=== PATIENT | female | born 1970 | race Caucasian/White ===

== ENCOUNTER 2016-04-28 07:56 | Emergency (ER) | payer OTHER ==
[2016-04-28 08:17] VITALS: BP 138/93
--- NOTE | 2016-04-28 09:05 | UC ---
Respiratory Complaint HPI - HPI Summary HPI Summary: non productive cough, for past week, seen PCP on Saturday prescribed Mucinex with no relief. sx started about 6-7 days ago. no fever. no sinus pain/ pressure. Has had to use inhaler before. no asthma. never smoked. feels burning with cough. - History of Current Complaint Chief Complaint: UCGeneralIllness Stated Complaint: COUGH, CONGESTION Time Seen by Provider: 04/28/16 08:14 Hx Last Menstrual Period: 10/2014 - Allergies/Home Medications Allergies/Adverse Reactions: Allergies Allergy/AdvReac Type Severity Reaction Status Date / Time No Known Allergies Allergy Verified 04/28/16 08:05 Home Medications: Home Medications Metaxalone TAB* [Skelaxin TAB*] 800 mg PO TID 04/28/16 [History Confirmed ] PMH/Surg Hx/FS Hx/Imm Hx Previously Healthy: Yes Endocrine History Of: Denies: Thyroid Disease Cardiovascular History Of: Reports: Deep Vein Thrombosis - Surgical History Surgical History: Yes Surgery Procedure, Year, and Place: 2011, gallbladder removal 2012, 2 left leg thrombi retrieval with one successful attempt 2009 - Family History Known Family History: Positive: Hypertension Negative: Respiratory Disease - Social History Alcohol Use: None Substance Use Type: None Substance Use Comment - Amount & Last Used: percocet Smoking Status (MU): Former Smoker Type: Cigarettes Have You Smoked in the Last Year: No When Did the Patient Quit Smoking/Using Tobacco: 1996 - Immunization History Most Recent Influenza Vaccination: 2012 Review of Systems Constitutional: Fatigue Skin: Negative Eyes: Negative ENT: Nasal Discharge Respiratory: Cough Cardiovascular: Negative Gastrointestinal: Negative Genitourinary: Negative Motor: Negative Neurovascular: Negative Musculoskeletal: Negative Neurological: Negative Psychological: Negative All Other Systems Reviewed And Are Negative: Yes Physical Exam Triage Information Reviewed: Yes Appearance: Well-Appearing, No Pain Distress - appears mildly ill appearing, Well-Nourished Vital Signs: Initial Vital Signs Temp 97.6 F 04/28/16 08:00 Pulse 82 04/28/16 08:00 Resp 16 04/28/16 08:00 BP 138/93 04/28/16 08:00 Pulse Ox 99 04/28/16 08:00 Vital Signs Reviewed: Yes Eye Exam: Normal ENT: Positive: Hearing grossly normal, Nasal congestion - + PND, Nasal drainage , TMs normal. Negative: Tonsillar swelling, Tonsillar exudate Dental Exam: Normal Neck exam: Normal Neck: Positive: Supple, Nontender, No Lymphadenopathy Respiratory Exam: Normal Respiratory: Positive: Lungs clear, No respiratory distress, No accessory muscle use, Decreased breath sounds. Negative: Crackles, Rhonchi, Stridor, Wheezing Cardiovascular Exam: Normal Cardiovascular: Positive: RRR, No Murmur, Pulses Normal, Brisk Capillary Refill Abdominal Exam: Normal Abdomen Description: Positive: Nontender, Soft Musculoskeletal Exam: Normal Neurological Exam: Normal Psychological Exam: Normal Skin Exam: Normal UC Diagnostic Evaluation - Laboratory O2 Sat by Pulse Oximetry: 99 Re-Evaluation - Re-Evaluation First Eval Re-Evaluation Time: 09:30 Change: Improved - she feels much better, lungs are looser and able to cough up more. no burning or wheezing. lungs with improved breath sounds on exam. Respiratory Course/Dx - Differential Dx/Diagnosis Differential Diagnosis/HQI/PQRI: Bronchitis, Influenza, Lower Resp Infection, Sinusitis Provider Diagnoses: bronchitis Discharge - Discharge Plan Condition: Stable Disposition: HOME Prescriptions: Albuterol HFA INHALER* [Ventolin HFA Inhaler*] 2 puff INH Q4H PRN #1 mdi PRN Reason: Cough Patient Education Materials: Acute Bronchitis (ED) Referrals: Megan Mandujano MD [Primary Care Provider] - 3 Days Additional Instructions: Use the inhaler every 4-6 hrs until sx resolve. increase fluids and rest.
[2016-04-28] MEDS ORDERED: Albuterol 2.5 MG/3 ML NEB.SOL* (0.083%) INH ONE (09:06)
== END 2016-04-28 09:43 | disposition home or self-care (01) ==
LOC: UCCORT 07:56
DX: J40 Bronchitis, not specified as acute or chronic (principal); Z90.49 Acquired absence of other specified parts of digestive tract; Z87.891 Personal history of nicotine dependence
CPT/HCPCS: 99212; G0463

== ENCOUNTER 2018-08-23 10:15 | Emergency (ER) | payer BC ==
[2018-08-23 10:34] VITALS: BP 116/72
--- NOTE | 2018-08-23 10:43 | UC ---
Eye Complaint HPI - HPI Summary HPI Summary: 48-year-old female who had watery itchy eyes yesterday however she will awaken today and there is drainage was more purulent and her eyes were crusted shut. She does not wear contact lenses and she denies any visual changes. No recent cold symptoms. - History of Current Complaint Chief Complaint: UCEye Stated Complaint: B/L EYE COMPLAINT Time Seen by Provider: 08/23/18 10:42 Hx Obtained From: Patient Hx Last Menstrual Period: 10/2014 ?: No Onset/Duration: Gradual Onset Timing: Constant Severity Initially: Mild Severity Currently: Mild Pain Intensity: 0 Location of Injury: Other - No injury Aggravating Factor(s): Nothing Alleviating Factor(s): Nothing Associated Signs And Symptoms: Positive: Drainage (Purulent) - Itchy eyes - Allergies/Home Medications Allergies/Adverse Reactions: Allergies Allergy/AdvReac Type Severity Reaction Status Date / Time No Known Allergies Allergy Verified 08/23/18 10:31 Home Medications: Home Medications cloNIDine TAB* [Catapres 0.1 MG TAB*] 0.1 mg PO QID 08/23/18 [History Confirmed 08/23/18] PMH/Surg Hx/FS Hx/Imm Hx Previously Healthy: Yes Cardiovascular History: Hypertension Psychological History: Anxiety - Surgical History Surgical History: Yes Surgery Procedure, Year, and Place: 2011;. gallbladder removal 2012; . 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[employer] ; IVC FILTER - [employer] VCFS CONDITIONAL 6 - 3T OR LESS 720 MSP DANIEL 2.0 W/KG NORMAL MODE ONLY); - Family History Known Family History: Positive: Hypertension Negative: Respiratory Disease - Social History Alcohol Use: None Substance Use Type: None Substance Use Comment - Amount & Last Used: percocet Smoking Status (MU): Former Smoker Type: Cigarettes Have You Smoked in the Last Year: No When Did the Patient Quit Smoking/Using Tobacco: 1996 - Immunization History Most Recent Influenza Vaccination: 2012 Review of Systems All Other Systems Reviewed And Are Negative: Yes Eyes: Positive: Drainage - Clear watery drainage yesterday but today it was more purulent with her eyes crusted shut., Eye Redness - Both eyes were itchy yesterday today. She denies any eye pain. Is Patient Immunocompromised?: No Physical Exam Triage Information Reviewed: Yes Appearance: Well-Appearing, No Pain Distress, Well-Nourished Vital Signs: Initial Vital Signs Temp 97.7 F 08/23/18 10:31 Pulse 66 08/23/18 10:31 Resp 16 08/23/18 10:31 BP 116/72 08/23/18 10:31 Pulse Ox 98 08/23/18 10:31 Vital Signs Reviewed: Yes Eyes: Positive: Conjunctiva Inflamed, Discharge - Mildly watery/purulent drainage from both eyes. Sclera is injected. ENT: Positive: Hearing grossly normal, Pharynx normal, TMs normal, Uvula midline Neck: Positive: Supple, Nontender, No Lymphadenopathy Respiratory: Positive: Lungs clear, Normal breath sounds, No respiratory distress, No accessory muscle use Cardiovascular: Positive: RRR, No Murmur, Pulses Normal, Brisk Capillary Refill Musculoskeletal Exam: Normal Neurological Exam: Normal Psychological Exam: Normal Skin Exam: Normal Eye Complaint Course/Dx - Course Course Of Treatment: The patient's symptoms may be allergy related although she does not have a history of allergies but because the drainage is a little more purulent today I am going to treat for a bacterial conjunctivitis. She is going to purchase Claritin 10 mg and take that daily and see if that helps some of the symptoms. She is to follow-up with the electrical engineer mep if no improvement in 2 or 3 days. - Differential Dx/Diagnosis Provider Diagnosis: Conjunctivitis Discharge - Sign-Out/Discharge Documenting (check all that apply): Patient Departure All imaging exams completed and their final reports reviewed: No Studies - Discharge Plan Condition: Fair Disposition: HOME Prescriptions: Tobramycin 0.3% OPHTH.SAL* 1 drop BOTH EYES Q4H 7 Days #1 btl Patient Education Materials: Conjunctivitis (ED) Referrals: Kieran Disla MD [Primary Care Provider] - Additional Instructions: Good handwashing, purchase Claritin 10 mg to take one a day over the next 7-10 days. Follow-up with the electrical engineer mep if no improvement in 2-3 days. Avoid rubbing her eyes. - Billing Disposition and Condition Condition: FAIR Disposition: Home
== END 2018-08-23 10:51 | disposition home or self-care (01) ==
LOC: UCCORT 10:15
DX: H10.9 Unspecified conjunctivitis (principal); I10 Essential (primary) hypertension; F41.9 Anxiety disorder, unspecified; Z87.891 Personal history of nicotine dependence
CPT/HCPCS: 99212; G0463

== ENCOUNTER 2018-08-26 16:49 | Emergency (ER) | payer BC ==
--- OUTSIDE RECORDS SUMMARY | 2018-08-26 17:24 | XMS REPORT | Continuity of Care Document ---
:1970 External Reference #:[id number] Author Name Leslie Obrien, PNP-BC, NURSE TRANSITION, Ibclc Address [address] [facility] [address] [place] [address] Care Team Providers Name Role Phone Kieran Disla MD Care Team Information Power And Recovery Supervisor Unavailable Kieran Disla MD Primary Care Physician Unavailable Payers Date Identification Numbers Payment Provider Subscriber Policy Number: [id number] [facility] Norma Maldonado PayID: [id number] [address] [place] [address] Onset: 2016 Policy Number: [id number] [facility] Insurance Fund Norma Maldonado PayID: [id number] [address] [place] [address] Problems Active Problems Provider Date Intrauterine Suhail Moran MD Onset: 10/08/2011 History of thromboembolism of vein Perez Patel M.D. Onset: 06/2012 Achilles bursitis Johnny Jenkins M.D. Onset: 11/27/2016 Resolved Problems History and physical examination, follow-up Suhail Moran MD Onset: 2011 Resolved: 10/08/2011 Gallbladder calculus with acute cholecystitis and Suhail Moran MD Onset: no obstruction Resolved: 10/08/2011 Family History Date Family Member(s) Observation Comments General No known family history of CAD. 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 [employer] Right-handed ADL's/IADL's Independent with all ADL's ADL's/IADL's Independent with all IADL's Tobacco Use Start: Unknown End: Former Cigarette Smoker Unknown 1 Pack Daily Cigarette Use Pack Years - 10 Tobacco Use Start: Unknown End: Quit 15 years ago Unknown Smoking Status Reviewed: 07/23/18 Quit 15 years ago ETOH Use Denies alcohol use Tobacco Use Start: Unknown End: Patient is a former Unknown smoker Recreational Drug Use Former Drug User Allergies, Adverse Reactions, Alerts Description No Known Drug Allergies Medications Active Medications SIG Qnty Indications Ordering Date Provider Cyclobenzaprine HCL 1 by mouth 60tabs M54.5 Leslie Obrien, 07/23/2018 10mg three times a PNP-BC, NURSE TRANSITION, Tablets day as needed Ibclc muscle spasms Clonidine HCL take one tablet 120tabs F41.9 Leslie Obrien, 07/23/2018 0.1mg Tablets by mouth four PNP-BC, NURSE TRANSITION, times a day as Ibclc needed maximum daily dose=4 Warfarin Sodium Unknown 5mg Tablets History Medications Potassium Chloride 1 tab by mouth 5tabs Kieran Disla MD 01/13/2018 - Kellee ER every day as 06/23/2018 20Meq Tablets ER directed Atorvastatin Calcium 1 tab by mouth 30tabs Kieran Disla MD 01/13/2018 - 40mg every day as 06/23/2018 Tablets directed Cyclobenzaprine HCL 1 tab by mouth 21tabs M54.5 Kieran Disla MD 2017 - 5mg three times a 06/23/2018 Tablets day as needed Acetaminophen/Codeine 1 po q6h prn 20tabs 574.00 Jorge, 02/11/2013 - #3 severe pain Perez Santiago, 01/09/2018 300-30mg Tablets M.D. Nortriptyline HCL Unknown - 10mg 01/09/2018 Capsules Cyclobenzaprine HCL take 1 tablet Unknown - 10mg by mouth three 01/09/2018 Tablets times a day if needed for muscle spasm Cyclobenzaprine HCL Zain Wisodm, - 10mg NURSE TRANSITION 06/23/2018 Tablets Vitamin D 2 by mouth Unknown - (Cholecalciferol) every day 01/09/2018 1000Unit Capsules Oxycodone HCL ER Unknown - 10mg Tab 01/09/2018 ER 12H Abuse-Det Duloxetine HCL Take One Unknown - 20mg Caps Capsule By 01/09/2018 Part Mouth Every Day Warfarin Sodium Unknown - 5mg 06/23/2018 Tablets Coumadin 1 by mouth Unknown - 5mg Tablets every day Unknown Coumadin as directed qod 90tabs Unknown - 7.5mg Tablets Unknown Coumadin as directed by 60tabs Unknown - 10mg Tablets 10 Unknown mg qod Micardis 1 po qd 90tabs Matthias Esquivel, - 40mg Tablets , PhD Unknown Lopressor po bid 30tabs Matthias Esquivel, - 50mg Tablets , PhD Unknown Hydrocodone/Acetaminop po qd Matthias Esquivel, - hen , PhD Unknown 5-325mg Tablets Coumadin 1 tab po as 30tabs Matthias Esquivel, - 5mg Tablets directed , PhD Unknown Prilosec 1 po qd 30caps Matthias Esquivel, - 20mg Capsules DR BATES, PhD Unknown Prozac 1 po qd Matthias Esquivel, - 40mg Capsules , PhD Unknown Immunizations CPT Code Status Date Vaccine Lot # [id number] Given 01/21/2018 Tdap injection [id number] Given 01/13/2018 Tdap injection [id number] Given 01/13/2018 Influenza Virus Vaccine, Quadrivalent, 36 [id number]+, [id number] Vital Signs Date Vital Result Comment 07/23/2018 8:51am BP Systolic 140 mmHg BP Diastolic 88 mmHg Body Temperature 97.7 F Heart Rate 69 /min Weight 295.00 lb O2 % BldC Oximetry 98 % 06/23/2018 9:07am BP Systolic 142 mmHg BP Diastolic 82 mmHg Body Temperature 97.9 F Heart Rate 72 /min Respiratory Rate 18 /min Height 68 inches 5'8" Weight 296.00 lb BMI (Body Mass Index) 45.0 kg/m2 BSA (Body Surface Area) 2.41 m2 [place] body weight in kilograms 63 kg O2 % BldC Oximetry 98 % 01/21/2018 2:28pm BP Systolic Sitting Right Arm 128 mmHg BP Diastolic Sitting Right Arm 78 mmHg Body Temperature 97.8 F Heart Rate 92 /min Height 68 inches 5'8" Weight 304.50 lb BMI (Body Mass Index) 46.3 kg/m2 BSA (Body Surface Area) 2.44 m2 [place] body weight in kilograms 63 kg 01/09/2018 1:15pm BP Systolic Sitting Left Arm 134 mmHg BP Diastolic Sitting Left Arm 74 mmHg Body Temperature 98.0 F Heart Rate 90 /min Height 68 inches 5'8" Weight 311.12 lb BMI (Body Mass Index) 47.3 kg/m2 BSA (Body Surface Area) 2.47 m2 [place] body weight in kilograms 63 kg 11/27/2016 3:08pm BP Systolic Sitting Left Arm 135 mmHg BP Diastolic Sitting Left Arm 87 mmHg Body Temperature 98.1 F Heart Rate 89 /min Height 68 inches 5'8" Weight 305.00 lb BMI (Body Mass Index) 46.4 kg/m2 BSA (Body Surface Area) 2.45 m2 [place] body weight in kilograms 63 kg 02/11/2013 3:08pm BP Systolic Sitting Right Arm 116 mmHg BP Diastolic Sitting Right Arm 73 mmHg Heart Rate 94 /min Respiratory Rate 20 /min Height 68 inches 5'8" Weight 245.00 lb BMI (Body Mass Index) 37.2 kg/m2 BSA (Body Surface Area) 2.23 m2 10/08/2011 8:28am BP Systolic Sitting Left Arm 118 mmHg BP Diastolic Sitting Left Arm 72 mmHg Heart Rate 104 /min Height 67.5 inches 5'7.50" Weight 259.00 lb BMI (Body Mass Index) 40.0 kg/m2 01/06/2010 1:47pm BP Systolic Sitting Right Arm 120 mmHg BP Diastolic Sitting Right Arm 66 mmHg BP Systolic Sitting Left Arm 122 mmHg BP Diastolic Sitting Left Arm 72 mmHg Heart Rate 84 /min Regular Respiratory Rate 16 /min Height 68.2 inches 5'8.20" Weight 251.00 lb BMI (Body Mass Index) 37.9 kg/m2 Results Test Date Facility Test Result H/L Range Note Urine Dipstick 07/23/2018 [facility] Ua Color yellow Yellow Ua Clarity clear Clear Ua Leuko negative Negative Ua Nitrite negative Negative Ua Urobilinogen 0.2 0.2 - 1.0 E.U./dL Ua Protein negative Negative Ua PH 6.0 Low 6.5-7.5 Ua Blood 25 Paul/uL High Negative Ua Specific [place] 1.025 1.010-1.030 Ua Ketones negative Negative Ua Bilirubin negative Negative Ua Glucose negative Negative LDL Cholesterol 06/23/[email or web address] Cholesterol 183 mg/dL <200 1, 2 Profile [address] [place], [place] [id number] [phone] Triglycerides 201 mg/dL High <150 3 HDL Cholesterol 41 mg/dL >40 4 LDL-Cholesterol 102 mg/dL < 100 5 Ua RFX Micro & Culture II 06/23/[email or web address] Urine Color STRAW Yellow [address] [place] [address] [phone] Urine Clarity CLEAR Clear Urine Glucose - Dipstick NEGATIVE mg/dL Negative Urine Bilirubin - Dipstick NEGATIVE Negative Urine Ketone NEGATIVE mg/dL Negative Urine Specific [place] <=1.005 Low 1.010-1.030 Urine Blood NEGATIVE Negative Urine PH 6.0 Low 6.5-7.5 Urine Protein - Dipstick NEGATIVE mg/dL Negative Urine Urobilinogen - Dipstick 0.2 E.U./dL N 0.2-1.0 Urine Nitrite - Dipstick NEGATIVE Negative Urine Leuk Esterase NEGATIVE Negative Source: URINE, CLEAN CAT <SEE NOTE> 6 Basic Metabolic Panel 06/23/[email or web address] Glucose 89 mg/dL N 74- 106 [address] [place] [address] [phone] BUN 7 mg/dL N 7-18 Creatinine 0.7 mg/dL N 0.6-1.3 Glom Filtration Rate, Estimate >60 mL/min >60 If >60 mL/min >60 7 BUN/Creat 10.0 ratio Sodium 138 mmol/L N 136-145 Potassium 3.6 mmol/L N 3.5-5.1 Chloride 105 mmol/L N 98-107 Carbon Dioxide 29 mmol/L N 21-32 Anion Gap 4 mEq/L Low 8-16 Calcium 8.8 mg/dL N 8.5-10.1 Basic Metabolic Panel 01/21/[email or web address] Glucose 96 mg/dL N 74- 106 8 [address] [place] [address] [phone] BUN 7 mg/dL N 7-18 Creatinine 0.8 mg/dL N 0.6-1.3 Glom Filtration Rate, Estimate >60 mL/min >60 If >60 mL/min >60 9 BUN/Creat 8.7 ratio Sodium 142 mmol/L N 136-145 Potassium 3.3 mmol/L Low 3.5-5.1 Chloride 104 mmol/L N 98-107 Carbon Dioxide 29 mmol/L N 21-32 Anion Gap 9 mEq/L N 8-16 Calcium 8.6 mg/dL N 8.5-10.1 Ua RFX Micro & Culture 01/21/[email or web address] Urine Color YELLOW Yellow II [address] [place] [address] [phone] Urine Clarity SL CLOUDY Clear Urine Glucose - Dipstick NEGATIVE mg/dL Negative Urine Bilirubin - Dipstick NEGATIVE Negative Urine Ketone NEGATIVE mg/dL Negative Urine Specific [place] 1.015 N 1.010-1.030 Urine Blood SMALL Abnormal Negative Urine PH 6.0 Low 6.5-7.5 Urine Protein - Dipstick NEGATIVE mg/dL Negative Urine Urobilinogen - Dipstick 0.2 E.U./dL N 0.2-1.0 Urine Nitrite - Dipstick NEGATIVE Negative Urine Leuk Esterase NEGATIVE Negative Urine RBC 0-2 rbc/hpf 0-2 Urine WBC 0-2 wbc/hpf 0-7 Urine Epithelial Cells FEW /lpf None Seen Urine Bacteria FEW None Seen Source: URINE, CLEAN CAT <SEE NOTE> 10 Urine Culture 01/21/[email or web address] Urine Culture URETHRAL WICHO [address] [place] [address] [phone] Quantity 10,000 - 50,000 <SEE NOTE> 11 Glycohemoglobin 01/09/[email or web address] Glycohemoglobin 5.9 % N 4.2- 6.3 12, A1c [address] [facility] (A1c) [address] [place] [address] [phone] eAG 123 mg/dL LDL Cholesterol Profile 01/09/[email or web address] Cholesterol 192 mg/dL <240 42 [address] [place] [address] [phone] Triglycerides 308 mg/dL High <150 15 HDL Cholesterol 34 mg/dL Low >40 16 LDL-Cholesterol 96 mg/dL < 100 17 Comprehensive Metabolic 01/09/[address] Glucose 120 mg/dL High 74-106 Panel [address] [place], [place] [id number] [phone] BUN 7 mg/dL N 7-18 Creatinine 0.7 mg/dL N 0.6-1.3 Glom Filtration Rate, Estimate >60 mL/min >60 If >60 mL/min >60 18 BUN/Creat 10.0 ratio Sodium 146 mmol/L High 136-145 Potassium 3.3 mmol/L Low 3.5-5.1 Chloride 110 mmol/L High 98-107 Carbon Dioxide 28 mmol/L N 21-32 Anion Gap 8 mEq/L N 8-16 Calcium 8.0 mg/dL Low 8.5-10.1 Total Protein 6.9 g/dL N 6.4-8.2 Albumin 3.1 g/dL Low 3.4-5.0 Globulin 3.8 g/dL N 1.9-4.3 Alb/Glob 0.8 ratio Bilirubin,Total 0.1 mg/dL Low 0.2-1.0 Sgot/Ast 16 U/L N 15-37 SGPT/Alt 20 U/L N 12-78 Alkaline Phosphatase 108 U/L N 45-117 CBC W/Automated Diff 01/09/[email or web address] White Blood 8.3 K/uL N 3.1-10.7 [address] [facility] [address] [phone] Red Blood Count 4.83 M/uL N 3.90-5.40 Hemoglobin 14.1 gm/dL N 11.6-15.8 Hematocrit 42.6 % N 36.0-46.1 Mean Cell Volume 88.2 fl N 80.9-99.0 Mean Corpuscular HGB 29.2 pg N 25.9-32.7 Mean Corpuscular HGB Conc 33.1 g/dL N 30.8-34.3 Platelet Count 304 K/uL N 155-360 Red Cell Distri Width SD 46.8 fl N 3-47 Red Cell Distri Width %CV 14.9 % High 11.7-14.4 Mean Platelet Volume 10.3 fL N 8.9-12.4 Neut% 61.4 % N 40.4-72.8 Lymph % 26.4 % N 20.0-42.0 [place] % 5.9 % N 4.3-13.2 Eo% 5.9 % N 0.0-6.6 Bas% 0.4 % N 0.0-1.1 Neut# 5.11 K/uL N 1.8-7.0 Lymph # 2.19 K/uL N 1.0-4.0 [place] # 0.49 K/uL N 0.3-0.9 Eos # 0.49 K/uL N 0.0-0.5 Baso # 0.03 K/uL N 0.0-0.1 Basic Metabolic Panel 02/05/2013 [facility] Glucose 112 mg/dL 76-115 [address] [place] [address] [phone] BUN 7 mg/dL 5-23 Creatinine 0.9 mg/dL 0.5-1.4 Glom Filtration Rate, Estimate >60 mL/min >60 If >60 mL/min >60 19 BUN/Creat 7.7 ratio Sodium 143 mmol/L 136-145 Potassium 3.6 mmol/L 3.5-5.1 Chloride 109 mmol/L High 98-107 Carbon Dioxide 29 mEq/L 18-29 Anion Gap 9 mEq/L 8-16 Calcium 7.3 mg/dL Low 8.5-10.1 CBC 02/05/2013 [facility] White Blood Count 13.7 K/uL High 3.1-10.7 [address] [place] [address] [phone] Red Blood Count 2.93 M/uL Low 3.90-5.40 Hemoglobin 8.4 gm/dL Low 11.6-15.8 Hematocrit 26.1 % Low 36.0-46.1 Mean Cell Volume 89.1 fl 80.9-99.0 Mean Corpuscular HGB 28.7 pg 25.9-32.7 Mean Corpuscular HGB Conc 32.2 g/dL 30.8-34.3 Platelet Count 261 K/uL 155-360 Red Cell Distri Width %CV 14.5 % High 11.7-14.4 Mean Platelet Volume 10.8 fL 8.9-12.4 Protime 02/05/2013 [facility] Protime 18.2 seconds High 12.1-14.9 [address] [place] [address] [phone] Inr 1.5 High 0.9-1.1 20 Laboratory test finding 02/04/2013 [facility] Abo/RH Type O POS 21 [address] [place] [address] [phone] Fresh Frozen Plasma,Single 8HR See Note 22 CBC 02/04/2013 [facility] White Blood Count 7.7 K/uL 3.1-10.7 [address] [place] [address] [phone] Red Blood Count 4.27 M/uL 3.90-5.40 Hemoglobin 12.5 gm/dL 11.6-15.8 Hematocrit 37.2 % 36.0-46.1 Mean Cell Volume 87.1 fl 80.9-99.0 Mean Corpuscular HGB 29.3 pg 25.9-32.7 Mean Corpuscular HGB Conc 33.6 g/dL 30.8-34.3 Platelet Count 232 K/uL 155-360 Red Cell Distri Width %CV 14.8 % High 11.7-14.4 Mean Platelet Volume 10.6 fL 8.9-12.4 Protime 02/04/2013 [facility] Protime 18.3 seconds High 12.1-14.9 [address] [place] [address] [phone] Inr 1.5 High 0.9-1.1 23 Laboratory test 02/04/2013 [facility] Gallbladder See Note 24 finding [address] [place] [address] [phone] Protime 02/04/2013 [facility] Protime 16.6 seconds High 12.1-1 [address] [facility] [address] [place] [address] [phone] Inr 1.3 High 0.9-1.1 25 CBC 02/04/2013 [facility] White Blood Count 7.4 K/uL 3.1-10.7 [address] [place], [place] [address] [phone] Red Blood Count 4.05 M/uL 3.90-5.40 Hemoglobin 11.7 gm/dL 11.6-15.8 Hematocrit 35.9 % Low 36.0-46.1 Mean Cell Volume 88.6 fl 80.9-99.0 Mean Corpuscular HGB 28.9 pg 25.9-32.7 Mean Corpuscular HGB Conc 32.6 g/dL 30.8-34.3 Platelet Count 214 K/uL 155-360 Red Cell Distri Width %CV 14.9 % High 11.7-14.4 Mean Platelet Volume 10.5 fL 8.9-12.4 CBC W/Automated Diff 09/15/2011 [facility] White Blood 8.0 K/uL 3.1-10.[address] [place] [address] [phone] Red Blood Count 3.68 M/uL Low 3.90-5.40 Hemoglobin 10.8 gm/dL Low 11.6-15.8 Hematocrit 32.5 % Low 36.0-46.1 Mean Cell Volume 88.3 fl 80.9-99.0 Mean Corpuscular HGB 29.3 pg 25.9-32.7 Mean Corpuscular HGB Conc 33.2 g/dL 30.8-34.3 Platelet Count 275 K/uL 155-360 Red Cell Distri Width SD 47.2 fl High 3-47 Red Cell Distri Width %CV 14.9 % High 11.7-14.4 Mean Platelet Volume 10.4 fL 8.9-12.4 Neut% 73.6 % High 40.4-72.8 Lymph % 15.9 % Low 17.0-46.1 [place] % 6.3 % 4.3-13.2 Eo% 4.1 % 0.0-6.6 Bas% 0.1 % 0.0-1.1 Neut# 5.86 K/uL 1.0-7.0 Lymph # 1.27 K/uL 0.8-3.4 [place] # 0.50 K/uL 0.3-0.9 Eos # 0.33 K/uL 0.0-0.5 Baso # 0.01 K/uL 0.0-0.1 Laboratory test 09/15/2011 [facility] Bilirubin,Direct 0.3 mg/dL 0.1-0.4 finding [address] [place] [address] [phone] Lipase 83 U/L 28-380 Comprehensive Metabolic 09/15/2011 [facility] Glucose 89 mg/dL 76-115 Panel [address] [place] [address] [phone] BUN 4 mg/dL Low 5-23 Creatinine 0.7 mg/dL 0.5-1.4 Glom Filtration Rate, Estimate >60 mL/min >60 If >60 mL/min >60 26 BUN/Creat 5.7 ratio Sodium 140 mmol/L 136-145 Potassium 2.9 mmol/L Low 3.5-5.1 Chloride 104 mmol/L 98-107 Carbon Dioxide 28 mEq/L 18-29 Anion Gap 11 mEq/L 8-16 Calcium 8.7 mg/dL 8.5-10.1 Total Protein 6.3 g/dL 6.3-8.0 Albumin 2.6 g/dL Low 3.5-5.0 Globulin 3.7 g/dL 1.9-4.3 Alb/Glob 0.7 ratio Bilirubin,Total 0.6 mg/dL 0.2-1.2 Sgot/Ast 13 U/L Low 16-40 SGPT/Alt 18 U/L Low 30-65 Alkaline Phosphatase 72 U/L 50-136 1 E78.5 E87.6 2 Reference Guidelines*: Desirable: ........... < 200 mg/dL Borderline High: ..... 200-239 mg/dL High: ................ >=240 mg/dL * The National Cholesterol Education Program (NCEP) 3 Reference Guidelines*: Normal: ............. < 150 mg/dL Borderline High: .... 150-199 mg/dL High: ............... 200-499 mg/dL Very High: .......... > 500 mg/dL * Source: National Cholesterol Education Program (NCEP) 4 Reference Guidelines*: Low HDL: ..... < 40 mg/dL Normal: ..... 40-60 mg/dL Desirable: ... > 60 mg/dL *The National Cholesterol Education Program(NCEP) 5 Reference Guidelines*: Optimal:........... <100 mg/dL Near Optimal....... 100-129 mg/dL Borderline High.... 130-159 mg/dL High............... 160-189 mg/dL Very High.......... >=190 mg/dL * Source: National Cholesterol Education Program (NCEP) 6 URINE, CLEAN CATCH 7 Note: Persistent reduction for 3 months or more in an eGFR <60 mL/min/1.73 m2 defines CKD. Patients with eGFR values >/=60 mL/min/1.73 m2 may also have CKD if evidence of persistent proteinuria is present. The original MDRD equation for estimated GFR is not valid for patients less than 18 years of age. Additional information may be found at www.kdoqi.org. 8 E87.6 9 Note: Persistent reduction for 3 months or more in an eGFR <60 mL/min/1.73 m2 defines CKD. Patients with eGFR values >/=60 mL/min/1.73 m2 may also have CKD if evidence of persistent proteinuria is present. The original MDRD equation for estimated GFR is not valid for patients less than 18 years of age. Additional information may be found at www.kdoqi.org. 10 URINE, CLEAN CATCH 11 10,000 - 50,000 CFU/mL 12 Z00.01 13 Elevated levels of HbA1c suggest the need for more aggressive treatment of glycemia. The [place] [employer] recommends that a primary goal of therapy should be a HbA1c of <7% and that physicians should re-evaluate the treatment regimen in patients with HbA1c values consistently >8%. 14 Reference Guidelines*: Desirable: ........... < 200 mg/dL Borderline High: ..... 200-239 mg/dL High: ................ >=240 mg/dL * The National Cholesterol Education Program (NCEP) 15 Reference Guidelines*: Normal: ............. < 150 mg/dL Borderline High: .... 150-199 mg/dL High: ............... 200-499 mg/dL Very High: .......... > 500 mg/dL * Source: National Cholesterol Education Program (NCEP) 16 Reference Guidelines*: Low HDL: ..... < 40 mg/dL Normal: ..... 40-60 mg/dL Desirable: ... > 60 mg/dL *The National Cholesterol Education Program(NCEP) 17 Reference Guidelines*: Optimal:........... <100 mg/dL Near Optimal....... 100-129 mg/dL Borderline High.... 130-159 mg/dL High............... 160-189 mg/dL Very High.......... >=190 mg/dL * Source: National Cholesterol Education Program (NCEP) 18 Note: Persistent reduction for 3 months or more in an eGFR <60 mL/min/1.73 m2 defines CKD. Patients with eGFR values >/=60 mL/min/1.73 m2 may also have CKD if evidence of persistent proteinuria is present. The original MDRD equation for estimated GFR is not valid for patients less than 18 years of age. Additional information may be found at www.kdoqi.org. 19 Note: Persistent reduction for 3 months or more in an eGFR <60 mL/min/1.73 m2 defines CKD. Patients with eGFR values >/=60 mL/min/1.73 m2 may also have CKD if evidence of persistent proteinuria is present. The original MDRD equation for estimated GFR is not valid for patients less than 18 years of age. Additional information may be found at www.kdoqi.org. 20 THERAPEUTIC INR RANGE: 2.0 - 3.0 DVT, Pulmonary embolus, prophylaxis against venous thrombosis or systemic embolization in high risk patients. 2.5 - 3.5 Mechanical heart valves 21 CALLED [place] AT 1409 02/04/13 by [email or web address] 2 FFP READY Transfusion Consent obtained? Y HCT: 37.2 02/04/13620 HGB: 12.5 02/04/13620 INR: 1.5 02/04/13620 22 -------- Issue -------- Unit # Bld Type Product Status Date Time User Rsrvd [id number] O POS FFP1 PRSMD TRFSD 02/04/13 1550 [facility] Unit Satisfactory? No Apparent Contamination Volume: 200 ML TX Begin: 02/04/13 By [employer] [place] End: 02/04/13 By [employer] [id number] O POS FFP1 PRSMD TRFSD 02/04/13 1500 [facility] Unit Satisfactory? No Apparent Contamination Volume: 200 ML TX Begin: 02/04/13 By [employer] TX End: 02/04/13 By [employer] 23 THERAPEUTIC INR RANGE: 2.0 - 3.0 DVT, Pulmonary embolus, prophylaxis against venous thrombosis or systemic embolization in high risk patients. 2.5 - 3.5 Mechanical heart valves 24 OPERATION/PROCEDURE Lap. cholecystectomy DIAGNOSIS: "GALLBLADDER, CHOLECYSTECTOMY": EDEMATOUS CHORIONIC VILLI AND DECIDUAL TISSUE. [place] GROSS Received in formalin labeled, "GALLBLADDER" is a 10.2 x 3.6 x 1.9 cm. laughlin- pink, rubbery gallbladder with a smooth serosal surface. The gallbladder is previously opened and upon further opening the wall of the gallbladder measures 0.7 cm. in thickness. The mucosa has a trabecular appearance with focal purulent exudates. No mccoy streaks are identified. No tumor is seen. A 1.8 x 1.8 x 1.4 cm. yellow-green stone is seen occluding the cystic duct. Radiology Services Manager sections are submitted in one block. [place]se MICROSCOPIC Sections show gallbladder mucosa lined by columnar epithelium with focal synechia, and Rokitansky-Aschoff sinus formation. The submucosa has an intense and transmural infiltrate of neutrophils, lymphocytes and plasma cells. The muscular wall is partially necrotic and hypertrophied. PRE OPERATIVE DIAGNOSIS Recurrent cholecystitis REVIEW CODE CODE: I GAGAN Washington MD 02/09/13 1502 25 THERAPEUTIC INR RANGE: 2.0 - 3.0 DVT, Pulmonary embolus, prophylaxis against venous thrombosis or systemic embolization in high risk patients. 2.5 - 3.5 Mechanical heart valves 26 Note: Persistent reduction for 3 months or more in an eGFR <60 mL/min/1.73 m2 defines CKD. Patients with eGFR values >/=60 mL/min/1.73 m2 may also have CKD if evidence of persistent proteinuria is present. The original MDRD equation for estimated GFR is not valid for patients less than 18 years of age. Additional information may be found at www.kdoqi.org. Procedures Date Code Description Status 11/27/2016 06233 Radiology, Ankle Complete Completed 11/27/2016 37828 Radiology, Ankle Complete Completed 02/03/2013 50331 Laparoscopy; cholecystectomy Completed 02/03/2013 93845 Anesthesia, Upper Abdomen Surgery Not Otherwise Spec Completed 01/11/2010 99267 Echocardiogram Complete Completed 01/11/2010 16611 Stress Test Interpre And Report Only Completed 01/11/2010 82886 Stress Test Physician Super Only Completed 01/06/2010 29493 EKG-Tracing And Report Completed 12/23/2009 78378 EKG Interpretation And Report Only Completed Encounters Type Date Location Provider Dx Diagnosis Office Visit 07/23/2018 Family Medicine Leslie Obrien, M54.5 Low back pain 8:45a Herod EDILBERTO PNP-BC, NURSE TRANSITION, Ibclc N95.9 Unspecified menopausal and perimenopausal disorder F41.9 Anxiety disorder, unspecified Office Visit 06/23/2018 9:00a Family Medicine Kieran iLn MD E87.[address] R31.9 Hematuria, unspecified E78.5 Hyperlipidemia, unspecified M72.2 Plantar fascial fibromatosis Z12.31 Encntr screen mammogram for malignant neoplasm of breast Office Visit 01/21/2018 2:30p Family Medicine Kieran Lin MD E87.[address] R31.9 Hematuria, unspecified Z23 Encounter for immunization Office Visit 11/27/2016 2:45p Orthopaedic Office Johnny Jenkins, M25.571 Pain in right M.D. ankle and joints of right foot M76.61 Achilles tendinitis, right leg M25.571 Pain in right ankle and joints of right foot Office Visit 10/08/2011 8:30a Surgical Office Suhail Moran, V67.09 Follow Up MD Examination Following Other Surgery 633.01 Abdominal W/Intrauterine Office Visit 09/13/2011 11:21a Surgical Office Suhail Moran 574.00 Calculus MD Theodore Gallbladder W/ Acute Cholecystitis W/O Obstruction Office Visit 01/06/2010 1:40p Cardiology Office Matthias Esquivel 786.59 Pain Chest Other MD Shweta, PhD 401.1 Hypertension Benign 272.4 Hyperlipidemia Other Unspec Plan of Treatment Future Appointment(s):09/09/2018 8:00 am - Liam Villatoro DPM at Podiatry [id number]/23/2018 - Leslie Obrien, KIRK-BC, NURSE TRANSITION, OceekP91.5 Low back painNew Medication:Cyclobenzaprine HCL 10 mg - 1 by mouth three times a day as needed muscle fvpahyS56.9 Unspecified menopausal and perimenopausal disorderComments:f/ u with Dr. CantuF41.9 Anxiety disorder, unspecifiedNew Medication:Clonidine HCL 0.1 mg - take one tablet by mouth four times a day as needed maximum daily dose= 4Comments:if doesn't seem to help f/u with your PCP
--- OUTSIDE RECORDS SUMMARY | 2018-08-26 17:24 | XMS REPORT | Continuity of Care Document ---
:1970 External Reference #:[id number] Author Name Khadra Mckeon Care Team Providers Name Role Phone Megan Mandujano M.D. Care Team Information Manager Pathology Unavailable Megan Mandujano M.D. Primary Care Physician Unavailable Payers Date Identification Numbers Payment Provider Subscriber Policy Number: [id number] [facility] Norma Maldonado PayID: [id number] [address] [place] [address] Problems Active Problems Provider Date Phlebitis and thrombophlebitis Jamie Mcleod M.D. Onset: 10/13/2009 Family History Date Family Member(s) Observation Comments Father good Mother hypertension Social History Type Date Description Comments Sex Unknown Tobacco Use Start: Unknown End: Unknown Former Cigarette Smoker quit 1996 ETOH Use Denies alcohol use Tobacco Use Start: Unknown End: Patient is a former smoker Smoking Status Reviewed: 08/12/18 Patient is a former smoker Allergies, Adverse Reactions, Alerts Description No Known Drug Allergies Medications Active Medications SIG Qnty Indications Ordering Date Provider Coumadin take 1 tablet 30tabs M. Betito Quiles, 01/01/2013 5mg Tablets daily as M.D. directed Clonidine HCL tid Unknown 0.1mg Tablets Cyclobenzaprine HCL take 1 tablet by Unknown 10mg mouth three Tablets times a day if needed for Muscle Spasms History Medications Oxycodone-Acetaminophen 1 by mouth q 8h 15tabs Ginger Elizalde 01/25/2015 - 10-325mg Tablets as needed N.P. 05/29/2017 Reference #: [id number] DO Not Take With Oxycodone 7.5 MG Lovenox twice a day 10unsanta Ayala 11/24/2014 - 120mg/0.8ML Solution Nydia Mcleod 01/24/2015 Tramadol HCL bid prn pain 60tabs Jamie 02/18/2013 - 50mg Tablets Nydia Mcleod 03/01/2014 Reference #: [id number] Coumadin 1 tablet a day 90tabs Jamie 10/20/2012 - 1mg Tablets and as directed Nydia Mcleod 02/22/2017 Coumadin 1 by mouth 90tabs Brian Jay, 10/15/2012 - 10mg Tablets every day or RandellDAlberto 02/22/2017 as directed Coumadin take 7.5 mg qd 60tabs Brian Jay, 03/12/2012 - 5mg Tablets Nydia 10/15/2012 Lovenox 110mg bid 30units Jamie 07/23/2011 - 120mg/0.8ML Solution Nydia Mcleod 02/18/2013 Coumadin 10 mg m-sat, 90tabs Jamie 06/27/2011 - 5mg Tablets 7.5 mg sat/sun Nydia Mcleod 11/04/2011 po as directed Ultram q 12 prn 30tabs Jamie 07/04/2010 - 50mg Tablets Nydia Mcleod 01/10/2011 Percocet one or two 40tabs Jamie 05/18/2010 - 7.5-325mg Tablets every 6 hours Nydia Mcleod 01/10/2011 as needed for pain Percocet 1 po q6h prn 20tabs Jamie 12/14/2009 - 5-325mg Tablets Nydia Mcleod 05/18/2010 Lovenox sq q12h 6units Jamie 10/14/2009 - 100mg/ml Solution Nydia Mcleod 11/02/2009 Coumadin take 7.5 mg 5x 50tabs Jamie 10/13/2009 - 5mg Tablets week and 10 mg Nydia Mcleod 06/27/2011 2x week. Lisinopril-Hydrochlorothiazide qd Nava Burks NP, - 10-12.5mg PA-C 08/11/2018 Tablets Skelaxin tid prn Unknown - 800mg Tablets 05/29/2017 Lisinopril every day Unknown - 10mg Tablets 05/29/2017 Cymbalta every day Unknown - 30mg Caps DR Kenyon 03/14/2014 Duloxetine HCL take 1 capsule Unknown - 20mg Caps DR Kenyon by mouth once 05/29/2017 daily Vitamin B-12 by injection Unknown - qweek x 4 05/05/2014 weeks, then q 2 weeks x 6 weeks Levothyroxine Sodium qd Unknown - 25mcg Tablets 02/18/2013 Famotidine qd Unknown - 20mg Tablets 02/18/2013 Neurontin bid 30caps Unknown - 300mg Capsules 01/18/2012 Multivitamins qd Unknown - Tablets 02/18/2013 Colace bid Unknown - 100mg 02/18/2013 Tylenol With Codeine #3 1 po q4h prn 30tabs Jamie - 300-30mg Tablets rian Mcleod M.D. 02/16/2010 Micardis qd Unknown - 80mg 01/18/2012 Hydrocodone-Acetaminophen bid prn 25tabs Unknown - 5-325mg Tablets 12/01/2009 Prilosec qd 30caps Unknown - 20mg Capsules 01/18/2012 Hydrochlorothiazide qd Unknown - 12.5mg Tablets 12/01/2009 Toprol XL qd Unknown - 100mg Tablets ER 24HR 12/01/2009 Tylenol With Codeine #3 2-q4h prn pain 30tabs Unknown - 300-30mg Tablets 11/02/2009 Vitamin qd Unknown - 05/18/2010 Potassium Chloride Kellee CR every day 7tabs Unknown - 20Meq Tablets 12/01/2009 ER Prozac qd Unknown - 40mg Capsules 01/18/2012 Vital Signs Date Vital Result Comment 08/12/2018 12:12pm BP Systolic Right Arm 120 mmHg BP Diastolic Right Arm 80 mmHg Heart Rate 70 /min Height 68 inches 5'8" Weight 290.00 lb Weight 131.544 kg BMI (Body Mass Index) 44.1 kg/m2 05/30/2017 9:18am BP Systolic Left Arm 120 mmHg BP Diastolic Left Arm 80 mmHg Heart Rate 72 /min Height 68 inches 5'8" Weight 310.00 lb Weight 140.616 kg BMI (Body Mass Index) 47.1 kg/m2 04/04/2016 8:40am BP Systolic Left Arm 126 mmHg BP Diastolic Left Arm 86 mmHg Heart Rate 80 /min Height 68 inches 5'8" Weight 290.00 lb Weight 131.544 kg BMI (Body Mass Index) 44.1 kg/m2 Pain Level 6 L hip, leg, back 01/25/2015 9:33am BP Systolic Right Arm 156 mmHg BP Diastolic Right Arm 80 mmHg Heart Rate 74 /min Weight 290.00 lb Weight 131.544 kg 11/24/2014 11:49am Weight 280.00 lb Weight 127.008 kg 05/06/2014 8:22am BP Systolic Left Arm 140 mmHg BP Diastolic Left Arm 86 mmHg Weight 254.00 lb Weight 115.214 kg 02/18/2013 12:15pm BP Systolic Left Arm 120 mmHg BP Diastolic Left Arm 90 mmHg Weight 239.00 lb Weight 108.410 kg Pain Level 7 Lle pain 01/27/2013 12:59pm Weight 235.00 lb Weight 106.596 kg 01/18/2012 3:21pm BP Systolic Right Arm 130 mmHg BP Diastolic Right Arm 80 mmHg Height 68 inches 5'8" Weight 278.00 lb Weight 126.101 kg BMI (Body Mass Index) 42.3 kg/m2 07/23/2011 1:12pm Weight 240.00 lb per pt last weigh in at on 07/20/11 Weight 108.864 kg 01/10/2011 10:27am BP Systolic Right Arm 110 mmHg BP Diastolic Right Arm 80 mmHg Height 69 inches 5'9" Weight 245.00 lb Weight 111.132 kg BMI (Body Mass Index) 36.2 kg/m2 05/18/2010 8:50am BP Systolic Right Arm 130 mmHg lg cuff BP Diastolic Right Arm 80 mmHg lg cuff Height 69 inches 5'9" Weight 275.00 lb Weight 124.740 kg BMI (Body Mass Index) 40.6 kg/m2 02/16/2010 9:29am BP Systolic Left Arm 130 mmHg BP Diastolic Left Arm 90 mmHg Heart Rate 80 /min Height 69 inches 5'9" Weight 260.00 lb Weight 117.936 kg BMI (Body Mass Index) 38.4 kg/m2 12/14/2009 11:09am BP Systolic Right Arm 140 mmHg BP Diastolic Right Arm 88 mmHg Heart Rate 76 /min Height 69 inches 5'9" 12/01/2009 8:23am Height 69 inches 5'9" Weight 230.00 lb Weight 104.328 kg BMI (Body Mass Index) 34.0 kg/m2 11/02/2009 9:26am BP Systolic Left Arm 130 mmHg BP Diastolic Left Arm 82 mmHg Heart Rate 70 /min 10/13/2009 7:52am BP Systolic Left Arm 130 mmHg BP Diastolic Left Arm 80 mmHg Heart Rate 80 /min Height 68 inches 5'8" Weight 234.00 lb Weight 106.142 kg BMI (Body Mass Index) 35.6 kg/m2 Results Test Date Facility Test Result H/L Range Note Protime 01/25/2015 [facility] [address] PT 31.4 s High (9.2-11.9) 1 [place] [address] [phone] Inr 2.87 2 Xray 05/06/2014 Main Office DVT Ultrasound <pending> [phone] Left Leg Basic Metabolic 10/13/2009 [facility] Sodium 135 mmol/L Low (136-14 Panel [phone]) Potassium 4.6 mmol/L (3.6-5.2) Chloride 100 mmol/L (100-108) Co2 25 mmol/L (22-31) Anion Gap 10 mmol/L (7-16) Urea Nitrogen 12 mg/dL (7-24) Creatinine 1.0 mg/dL (0.6-1.0) BUN/Creat Ratio 12.0 RATIO (10.0-20.0) Glucose 101 mg/dL High (70-99) Calcium 9.6 mg/dL (8.4-10.2) GFR 66 ML/MIN/1.73M2 (>59) GFR ( Amer) 79 ML/MIN/1.73M2 (>59) GFR Interpretation <SEE NOTE> 3 Activated Partical 10/13/2009 [facility] Aptt 56.9 SEC High (22.1-31.5) Thromboplasin Time [phone] Protime 10/13/2009 [facility] PT 21.9 SEC High (8.8-11.1) [phone] Inr 2.19 4 CBC With Diff 10/13/2009 [facility] WBC 10.0 K/UL (4.1-11.0) [phone] RBC 4.64 M/UL (4.00-5.40) HGB 13.2 GM/DL (12.0-16.0) HCT 40.1 % (36.0-47.0) MCV 86.4 FL (80.0-95.0) MCH 28.5 pg (27.0-32.0) MCHC 33.0 g/dL (32.0-36.0) RDW 14.0 % (10.5-14.5) PLT 422 K/UL High (150-400) MPV 7.3 FL (7.1-10.7) Neut % 86.8 % High (35.0-75.0) Lymph % 2.8 % Low (16.0-52.0) [place] % 5.3 % (0-8.0) Eos % 5.1 % High (0-5.0) Baso % 0.0 % (0-4.0) Neut # 8.7 K/UL High (1.8-7.7) Lymph # 0.3 K/UL Low (1.2-4.8) [place] # 0.5 K/UL (0-0.8) Eos # 0.5 K/UL (0-0.5) Baso # 0.0 K/UL (0-0.2) 1 PERFORMED AT [address] [place] [address] 2 SUGGESTED THERAPEUTIC RANGES USING INR FOR STABILIZED ANTICOAGULATED PATIENTS: STANDARD DOSE THERAPY INR 2.0-3.0 DVT, PE, PREVENT DVT OR EMBOLISM HIGH DOSE THERAPY INR 2.5-3.5 PREVENT EMBOLISM FROM MECHANICAL HEART VALVE 3 NORMAL KIDNEY FUNCTION OR MILD DISEASE - GFR >OR=60 CHRONIC KIDNEY DISEASE - GFR 15 - 59 RENAL FAILURE - GFR <15 Est. GFR calculation based on the MDRD study equation, which assumes a steady state for creatinine. Est. GFR should not be used for medication dosing. 4 SUGGESTED THERAPEUTIC RANGES USING INR FOR STABILIZED ANTICOAGULATED PATIENTS: STANDARD DOSE THERAPY INR 2.0-3.0 DVT, PE, PREVENT DVT OR EMBOLISM HIGH DOSE THERAPY INR 2.5-3.5 PREVENT EMBOLISM FROM MECHANICAL HEART VALVE Procedures Date Code Description Status 01/25/2015 27396 Duplex Scan Extremity Veins Follow-Up Or Limited Study Completed 05/06/2014 85555 Duplex Scan Extremity Veins Follow-Up Or Limited Study Completed 02/18/2013 16074 Duplex Scan Extremity Veins Follow-Up Or Limited Study Completed 02/18/2013 00013 Duplex Scan Extremity Veins Follow-Up Or Limited Study Completed 01/18/2012 69235 Duplex Scan Extremity Veins Follow-Up Or Limited Study Completed 01/10/2011 12114 Duplex Scan Extremity Veins Follow-Up Or Limited Study Completed 05/18/2010 49719 Duplex Scan Extremity Veins Follow-Up Or Limited Study Completed 12/14/2009 72100 Duplex Scan Extremity Veins Follow-Up Or Limited Study Completed 12/01/2009 28958 Duplex Scan Extremity Veins Follow-Up Or Limited Study Completed Encounters Type Date Location Provider Dx Diagnosis Office Visit 08/12/2018 Main Office Jamie Mcleod Z86.718 Personal history of 12:15p M.D. 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 soft tissue disorders M79.605 Pain in left leg I80.202 Phlbts and thombophlb of unsp deep vessels of l low extrem Office 02/18/2013 Main Office Mary Donohue, 453.51 Chronic Venous Visit 1:00p P.A. Embolism&Thrombosis,Deep Vessels Proximal Low Office 02/16/2010 Main Office Jamie 451.19 Phlebitis & Thrombophlebitis Visit 9:45a Nydia Mcleod Of Lower Extrem,Other Veins Office 11/02/2009 Main Office Jamie 451.19 Phlebitis & Thrombophlebitis Visit 9:30a Nydia Mcleod Of Lower Extrem,Other Veins Office 10/13/2009 Main Office Jamie 451.0 Phlebitis & Thrombophlebitis Visit 8:00a Nydia Mcleod Superficial Vessels Lower Extre Plan of Treatment Future Appointment(s):08/12/2019 9:15 am - Jamie Mcleod M.D. at Main Nosxcv4908/12/2018 - Jamie Mcleod M.D.Z86.718 Personal history of other venous thrombosis and mmevvoxbV41.01 assisted (current) use of anticoagulantsFollow up :1 YEAR OV/
[2018-08-26 17:36] VITALS: BP 116/75
--- NOTE | 2018-08-26 18:17 | ED ---
Throat Pain/Nasal Congestion - HPI Summary HPI Summary: 48 yr old with bilateral eye irriation for about a week, and getting worse despite being on Tobramycin eye drops for four days. She has drainage, yellow in nature, and redness. She reports that she did not have an eye surgeon to follow up with. She states that she does not wear contact lenses. She denies fever. chills. Denies headache. she has no other complaints. - History of Current Complaint Chief Complaint: UCEye Time Seen by Provider: 08/26/18 17:54 - Allergies/Home Medications Allergies/Adverse Reactions: Allergies Allergy/AdvReac Type Severity Reaction Status Date / Time No Known Allergies Allergy Verified 08/26/18 17:36 PMH/Surg Hx/FS Hx/Imm Hx Endocrine/Hematology History: Denies: Hx Diabetes, Hx Thyroid Disease Cardiovascular History: Reports: Hx Deep Vein Thrombosis, Hx Hypertension - DOES NOT TAKE MEDS Denies: Hx Pacemaker/ICD History: Denies: Hx Renal Disease Sensory History: Denies: Hx Hearing Aid Psychiatric History: Denies: Hx Panic Disorder - Surgical History Surgery Procedure, Year, and Place: 2011;. gallbladder removal 2012; . 2 left leg thrombi retrieval with one successful attempt 2010 [facility] - [facility] 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[facility] ; IVC FILTER - [employer] VCFS CONDITIONAL 6 - 3T OR LESS 720 MSP DANIEL 2.0 W/KG NORMAL MODE ONLY); Infectious Disease History: No Infectious Disease History: Denies: Traveled Outside the [place] in Last 30 Days - Family History Known Family History: Positive: Hypertension Negative: Respiratory Disease - Social History Alcohol Use: None Substance Use Type: Reports: None Substance Use Comment - Amount & Last Used: percocet Smoking Status (MU): Former Smoker Type: Cigarettes Have You Smoked in the Last Year: No Review of Systems Constitutional: Negative Positive: Drainage, Erythema, Other - irritation eyes. All Other Systems Reviewed And Are Negative: Yes Physical Exam Triage Information Reviewed: Yes Vital Signs On Initial Exam: Initial Vitals Temp Pulse Resp BP Pulse Ox 97.8 F 88 16 116/75 100 08/26/18 17:33 08/26/18 17:33 08/26/18 17:33 08/26/18 17:33 08/26/18 17:33 Vital Signs Reviewed: Yes Appearance: Positive: Well-Appearing, No Pain Distress Skin: Positive: Warm, Skin Color Reflects Adequate Perfusion Eyes: Positive: EOMI, PADMA, Conjunctiva Inflammed - with some chemosis., Discharge ENT: Positive: Pharynx normal Neck: Positive: Supple Respiratory/Lung Sounds: Positive: Other - normal effort Cardiovascular: Positive: RRR. Negative: Murmur Abdomen Description: Negative: Distended Musculoskeletal: Positive: Strength/ROM Intact Neurological: Positive: Sensory/Motor Intact, Alert, Oriented to Person Place, Time, CN Intact II-III, Normal Gait, Speech Normal Psychiatric: Positive: Normal - Dara Coma Scale Best Eye Response: 4 - Spontaneous Best Motor Response: 6 - Obeys Commands Best Verbal Response: 5 - Oriented Coma Scale Total: 15 Diagnostics - Vital Signs Vital Signs Temp Pulse Resp BP Pulse Ox 08/26/18 17:33 97.8 F 88 16 116/75 100 - Laboratory Lab Statement: Any lab studies that have been ordered have been reviewed, and results considered in the medical decision making process. EENT Course/Dx - Course Course Of Treatment: 48 yr female with bilateral conjunctivitis and worsening redness and irritation. We have no slit lamp here or further optho consult available. She is going to [facility] or [facility] upon leaving here. 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 - Diagnoses Provider Diagnoses: Conjunctivitis Discharge - Sign-Out/Discharge Documenting (check all that apply): Patient Departure All imaging exams completed and their final reports reviewed: No Studies - Discharge Plan Condition: Good Disposition: HOME-RECOMMEND TO ED Patient Education Materials: Conjunctivitis (ED) Referrals: Kieran Disla MD [Primary Care Provider] - Additional Instructions: You need to go to [facility] or [facility] after leaving here in [place] for Opthomology to see you for further evaluation now. - Billing Disposition and Condition Condition: GOOD Disposition: Home-Recommend to ED
== END 2018-08-26 18:14 | disposition home health service (06) ==
LOC: UCCORT 16:49
DX: H10.9 Unspecified conjunctivitis (principal); Z86.718 Personal history of other venous thrombosis and embolism; Z87.891 Personal history of nicotine dependence
CPT/HCPCS: 99212; G0463